=== PATIENT | male | born 1980 | race Caucasian/White ===

== ENCOUNTER 2016-04-24 13:36 | Emergency (ER) | payer MEDICARE, OTHER ==
[~2016-04-24 13:36] MED LIST: HUMULIN N VIAL; NOVOLIN R100 UNITS/
== END 2016-04-24 13:40 | disposition home or self-care (01) ==
LOC: SED 13:36
DX: S80.01XA Contusion of right knee, initial encounter (principal); E10.9 Type 1 diabetes mellitus without complications; X58.XXXA Exposure to other specified factors, initial encounter
CPT/HCPCS: 99283